=== PATIENT | male | born 1965 | race Caucasian/White ===

== ENCOUNTER 2023-05-19 19:24 | Emergency (ER) | payer OTHER, SELFPAY ==
[2023-05-19 19:30] VITALS: BP 148/89; PULSE 64; RESP 16; TEMP 36.7; O2SAT 98; BMI 27.2
--- NOTE | 2023-05-19 20:02 | ED_ITS ---
HPI - Back Pain/Injury General Chief Complaint: Back Pain/Injury Stated Complaint: BACK PAIN Time Seen by Provider: 05/19/23 19:45 Source: patient Mode of arrival: walk-in Limitations: no limitations History of Present Illness HPI Narrative: 57-year-old male presents with left back pain that started today. He states he has a history of herniated disks with surgical intervention in the past with neuropathy in both legs. Hurts worse with movement. Denies injury, denies radiation of pain. denies hx CA or IVDU. denies bowel or bladder incontinence. denies alleviating sx. denies BLE swelling, temp or sensation changes. denies fever, abd pain, dysuria, n/v/d Related Data Previous Rx's Medication Instructions Recorded tizanidine 4 mg tablet (Zanaflex) 4 mg PO TID PRN muscle spasticity 05/19/23 5 days #15 tabs Allergies Allergy/AdvReac Type Severity Reaction Status Date / Time amoxicillin Allergy Severe Verified 05/19/23 19:34 Review of Systems ROS Status of ROS 10 or more systems reviewed and unremarkable except as noted in history and below [facility] Medical History (Updated 05/19/23 @ 20:02 by LULU Joseph) Exam Narrative Exam Narrative: General: A&Ox3, no distress, talking in full an complete sentences skin: warm, dry, intact head: normocephalic, atraumatic eyes: EOMI nose: nares patent neck: supple, trachea midline respiratory: non-labored extremities: FROM x 4, strength +5/5 spine: Tender to left L3 paraspinal muscle, normal ROM, no step offs neuro: A&Ox3 psych: appropriate mood and affect, cooperative Constitutional Vital Signs - 24 hr 05/19/23 19:30 Temperature 98.0 F Pulse Rate [Monitor] 64 Respiratory Rate 16 Blood Pressure [Left Arm] 148/89 H Pulse Oximetry 98 Oxygen Delivery Method Room Air Course Vital Signs Vital signs: Vital Signs Temperature 98.0 F 05/19/23 19:30 Pulse Rate 64 05/19/23 19:30 Respiratory Rate 16 05/19/23 19:30 Blood Pressure 148/89 H 05/19/23 19:30 Pulse Oximetry 98 05/19/23 19:30 Oxygen Delivery Method Room Air 05/19/23 19:30 Temperature 98.0 F 05/19/23 19:30 Pulse Rate 64 05/19/23 19:30 Respiratory Rate 16 05/19/23 19:30 Blood Pressure 148/89 H 05/19/23 19:30 Pulse Oximetry 98 05/19/23 19:30 Oxygen Delivery Method Room Air 05/19/23 19:30 MDM - Back Pain/Injury MDM Narrative Medical decision making narrative: Patient states that his pain is in the same place when he gets flareups and feels like his normal flareup of chronic back pain. [place] reviewed. He is not driving and is medicated with Dilaudid and Toradol is given a prescription for [place] and Zanaflex. He is instructed to not take the muscle relaxer and [place] together. F/u with PCP. afebrile, not tachycardic, not hypoxic, non toxic appearing and ambulating at baseline and hemodynamically stable to be d/c. answered all questions. pt in agreement with tx. educated when to return to ER. Discharge Plan Discharge Chief Complaint: Back Pain/Injury Clinical Impression: Strain of lumbar region Patient Disposition: Home, Self-Care Time of Disposition Decision: 20:02 Condition: Good Mode of Transportation: Private Vehicle Prescriptions / Home Meds: New tizanidine [Zanaflex] 4 mg tablet 4 mg PO TID PRN (Reason: muscle spasticity) 5 Days Qty: 15 0RF Instructions: Back Pain (ED) Additional Instructions: do not take norco and and muscle relaxer together Stand Alone Forms: Portal Instructions Referrals: TIERRA JOSEPH [Primary Care Provider] - 1 week Discharge Date/Time: 05/19/23 20:54
[2023-05-19] MEDS: HYDROMORPHONE HCL 0.5 MG/0.5 ML SYRINGE IM (20:48)
[2023-05-19] MEDS: KETOROLAC TROMETHAMINE 30 MG/ML VIAL 15 MG IM (20:48)
== END 2023-05-19 20:54 | disposition home or self-care (01) ==
PROVIDERS: Emergency Provider Internal Medicine; PCP Family Medicine
DX: S39.012A Strain of muscle, fascia and tendon of lower back, initial encounter (principal); X58.XXXA Exposure to other specified factors, initial encounter
CPT/HCPCS: 96372; 99284; J1170